=== PATIENT | female | born 1950 | race Caucasian/White ===

== ENCOUNTER 2017-06-10 21:42 | Emergency (ER) | payer BC ==
[2017-06-10 22:05] LABS: Bilirubin Negative (Negative); Blood, Urine Negative (Negative); Clarity CLEAR (Clear); Glucose, Urine (Dipstick) Negative (Negative); Leukocyte Negative (Negative); Nitrite Negative (Negative); Protein, Urine (Dipstick) Negative (Neg-Trace); Specific Gravity, Urine 1.012 (1.002-1.036); Urobilinogen 0.2 mg/dL (0.2-1.0); pH, Urine 7.5 (5.0-9.0)
[2017-06-10 22:11] LABS: #Basophils 0.1 thou/uL (0.0-0.2); #Eosinphils 0.2 thou/uL (0.0-0.7); #Lymphocytes 1.5 thou/uL (1.20-3.40); #Monocytes 1.1 thou/uL (0.11-0.59); #Neutrophils 8.9 thou/uL (1.40-6.50); %Basophils 0.6 % (0.0-1.0); %Eosinophils 1.7 % (0.0-10.0); %Lymphocytes 12.6 % (21.0-51.0); %Monocytes 9.3 % (0.0-10.0); %Neutrophils 75.9 % (42.0-75.0); Hemoglobin 13.7 g/dL (12.0-16.0); Mean Corpuscular HGB CONC 33.1 g/dL (32.0-36.0); Mean Corpuscular Hemoglobin 33.1 pg (27.0-31.0); Mean Platelet Volume 6.9 fL (7.4-10.4); Platelet Count 287 thou/uL (130-400); RBC Distribution Width 12.8 % (11.5-14.5); Red Blood Cell (RBC) Count 4.14 mill/uL (4.20-5.40); White Blood Cell (WBC) Count 11.7 thou/uL (4.8-10.8)
[2017-06-10 22:28] LABS: ALT (SGPT) 20 U/L (8-55); AST (SGOT) 22 U/L (5-34); Albumin 4.5 g/dL (3.4-4.8); Alkaline Phosphatase 83 U/L (40-150); Anion Gap 11 mmol/L (10-20); BUN (Urea Nitrogen) 12 mg/dL (9.8-20.1); Bilirubin, Total 0.4 mg/dL (0.2-1.2); Calc. Creatinine Clearance 0 mL/min (70-130); Calcium 9.8 mg/dL (7.8-10.44); Carbon Dioxide 31 mmol/L (23-31); Chloride 100 mmol/L (98-107); Estimated GFR-MDRD 80; Globulin 3.3 g/dL (2.4-3.5); Glucose 98 mg/dL (80-115); Protein, Total 7.8 g/dL (6.0-8.3); Sodium 138 mmol/L (136-145)
[2017-06-11] MEDS ORDERED: HYDROcodone/Acetaminophen 5/325 mg Tablet ONE (00:49)
--- NOTE | 2017-06-11 07:52 | RAD ---
TWO VIEWS CHEST: HISTORY: Chest pain. FINDINGS: PA and lateral views of the chest were obtained. The lungs are well aerated. No evidence of active intrathoracic disease is seen. No evidence of eff usions, pneumonia, or pneumothorax seen. IMPRESSION: Unremarkable 2 views chest. POS: [facility]
== END 2017-06-11 01:36 | disposition home or self-care (01) ==
LOC: ERS 21:42
DX: R10.9 Unspecified abdominal pain (principal)
CPT/HCPCS: 36415; 71046; 80053; 81003; 85025; 85379

== ENCOUNTER 2018-08-16 10:50 | Outpatient (CLI) | payer MEDICARE ==
--- NOTE | 2018-08-16 11:35 | CT ---
CONTRAST ENHANCED IMAGES PELVIS: HISTORY: Persistent rectal burning. FINDINGS: Contrast-enhanced images of the pelvis obtained after administration of IV and oral contrast. No significant evidence of pelvic osseous lesion seen. No evidence of free pelvic fluid seen. The visualized small bowel and colon is unremarkable. No diste nded loop of small bowel seen. No evidence of pelvic lymphadenopathy seen. IMPRESSION: Normal contrast-enhanced CT images of the pelvis. Transcribed Date/Time: 08/16/2018 12:40 PM
[2018-08-16] MEDS ORDERED: ISOVUE-370 76%-LOCM 1 ML ONE (16:42)
== END 2018-08-16 10:51 | disposition home or self-care (01) ==
LOC: BICCT 10:50
PROVIDERS: ATTEND Internal Medicine Gastroenterology
DX: K62.89 Other specified diseases of anus and rectum (principal)
CPT/HCPCS: 72193; 82565; Q9966

== ENCOUNTER 2020-02-25 08:48 | Outpatient (CLI) | payer MEDICARE ==
--- NOTE | 2020-02-25 09:25 | BD ---
EXAM: DEXA bone density examination HISTORY: History of osteoporosis COMPARISON: July 04, 2017 and July 15, 2013 FINDINGS: L1--bone mineral density 0.936 g/sq cm; T score -0.5. Z score 1.3 L2--bone mineral density 0.963 g/sq cm; T score -0.6; Z score 1.4 L3--bone mineral density 1.011 g/sq cm; T score -0.7; Z score 1.4 L4--bone mineral density 0.955 g/sq cm; T score -1.0, Z score 1.1 Total L1-L4--bone mineral density 0.967 g/sq cm; T score -0.7, Z score 1.2 Left femoral neck--bone mineral density0.660; T score -1.7, Z score 0.0 Total proximal left femur--bone mineral density 0.792; T score -1.2, Z score 0.2 This patient has a 10 year WHO fracture risk of a major osteoporotic fracture of 8.5% and of a hip fr acture of 1.3%. The bone mineral density of the left femoral neck region has slightly declined from the comparison examination dated July 04, 2017 performed at [facility]. A direct comparison cannot be made as the examination was performed on dissimilar scan types IMPRESSION: Based on the WHO criteria, the patient's bone mineral density is consideredOsteopenic. T he patient is at moderate risk for fracture.
== END 2020-02-25 08:49 | disposition home or self-care (01) ==
LOC: BICMAMMO 08:48
PROVIDERS: ATTEND Internal Medicine
DX: M81.0 Age-related osteoporosis without current pathological fracture (principal); M85.89 Other specified disorders of bone density and structure, multiple sites
CPT/HCPCS: 77080

== ENCOUNTER 2022-04-03 10:37 | Inpatient (IN) | payer MEDICARE ==
[2022-04-03] MEDS ORDERED: Fentanyl 250 MCG/5 ML VIAL ONE (12:08)
[2022-04-03] MEDS ORDERED: Neomycin-Polymyxin 1 ML AMP ONE (12:26)
[2022-04-03] MEDS ORDERED: Ropivacaine 0.5% HCl/PF (150 MG/30 ML VIAL) ONE (12:33)
[2022-04-03] MEDS ORDERED: Midazolam HCl 2 mg/2 ml Vial ONE (12:33)
[2022-04-03] MEDS ORDERED: Fentanyl 100 MCG/2 ML VIAL ONE ×2 (12:33→14:33)
[2022-04-03] MEDS ORDERED: CEFAZOLIN 2 GM VIAL ONE (12:42)
[2022-04-03] MEDS ORDERED: Sodium Chloride 0.9% 100 ML ONE (12:42)
[2022-04-03] MEDS ORDERED: Glycopyrrolate 0.2 MG/ML 5 ML SYRINGE ONE (12:59)
[2022-04-03] MEDS ORDERED: Rocuronium Bromide 10 MG/ML (10ML VIAL) ONE (12:59)
[2022-04-03] MEDS ORDERED: PROPOFOL 200 MG/20 ML VIAL ONE (12:59)
[2022-04-03] MEDS ORDERED: NEOSTIGMINE 3 MG/3 ML SYR 3 MG/3 ML SYRINGE ONE (12:59)
[2022-04-03] MEDS ORDERED: Ondansetron PF 4 MG/2 ML Vial ONE (12:59)
[2022-04-03] MEDS ORDERED: Ketorolac Tromethamine 30 MG/ML VIAL ONE (12:59)
[2022-04-03] MEDS ORDERED: Promethazine HCl 25 MG/ML VIAL IVPB PRN (13:20)
[2022-04-03] MEDS ORDERED: Meperidine HCl/PF 25 MG/ML VIAL SLOW IVP PRN (13:20)
[2022-04-03] MEDS ORDERED: Promethazine HCl 25 MG/ML VIAL IM PRN (13:20)
[2022-04-03] MEDS ORDERED: HYDROmorphone 2 MG/ML VIAL SLOW IVP PRN (13:20)
[2022-04-03] MEDS ORDERED: Bupivacaine HCl 0.5%/Epinephrine 1:200,000/PF 30 ml Vial ONE (13:21)
[2022-04-03] MEDS ORDERED: Morphine 10 MG/ML VIAL ONE (13:32)
[2022-04-03] MEDS ORDERED: TETANUS, DIPHTHERIA TOX,ADULT (TDVAX) 0.5 ML VIAL IM ONE (14:03)
[2022-04-03] MEDS ORDERED: Morphine 4 MG/ML VIAL SLOW IVP PRN ×2 (14:03→15:17)
[2022-04-03] MEDS ORDERED: Ondansetron PF 4 MG/2 ML Vial SLOW IVP PRN (14:03)
[2022-04-03] MEDS ORDERED: hydrALAZINE 20 MG/ML VIAL ONE (14:09)
[2022-04-03] MEDS ORDERED: Communication Order-Pharmacy FS SCH (14:15)
[2022-04-03] MEDS ORDERED: HYDROmorphone 0.5 MG/0.5 ML SYRINGE ONE (14:21)
[2022-04-03 17:30] VITALS: BMI 18.9
[2022-04-03] MEDS: Ketorolac Tromethamine 30 MG/ML VIAL IVP SCH ×2 (18:35→23:51)
[2022-04-03] MEDS: CEFAZOLIN 2 GM in Sodium Chloride 0.9% 100 ML IVPB SCH (21:15)
[2022-04-03] MEDS: Aspirin 81 mg Enteric Coated Tablet PO SCH (21:15)
[2022-04-04] MEDS: Ketorolac Tromethamine 30 MG/ML VIAL IVP SCH ×3 (06:05→17:50)
[2022-04-04] MEDS: CEFAZOLIN 2 GM in Sodium Chloride 0.9% 100 ML IVPB SCH (06:06)
[2022-04-04] MEDS: HYDROcodone/Acetaminophen 10/325 mg Tablet PO PRN (10:14)
[2022-04-04] MEDS: Aspirin 81 mg Enteric Coated Tablet PO SCH ×2 (10:14→20:19)
[2022-04-05] MEDS: HYDROcodone/Acetaminophen 10/325 mg Tablet PO PRN ×2 (03:33→15:09)
[2022-04-05] MEDS: Aspirin 81 mg Enteric Coated Tablet PO SCH (09:53)
[2022-04-05 11:26] VITALS: BP 151/83; TEMP 99.1
== END 2022-04-05 16:12 | disposition home health service (06) | DRG 470 ==
LOC: SDC 10:37 → SURG A 15:28
PROVIDERS: ADMIT Orthopaedic Surgery; ATTEND Orthopaedic Surgery
PROC: 0SRR0JZ Replacement of Right Hip Joint, Femoral Surface with Synthetic Substitute, Open Approach (ICD-10-PCS; principal; 2022-04-03)
PROC: 0QP604Z Removal of Internal Fixation Device from Right Upper Femur, Open Approach (ICD-10-PCS; 2022-04-03)
DX: T84.89XA Other specified complication of internal orthopedic prosthetic devices, implants and grafts, initial encounter (principal); S72.001K Fracture of unspecified part of neck of right femur, subsequent encounter for closed fracture with nonunion; T84.84XA Pain due to internal orthopedic prosthetic devices, implants and grafts, initial encounter; Z79.82 Long term (current) use of aspirin
CPT/HCPCS: 80048; 85027; 93005; 93010; C1776; J0360; J1170; J1885; J2250; J2270; J2405; J2704; J2795; J3010; J3490

== ENCOUNTER 2025-03-26 13:37 | Outpatient (CLI) | payer MEDICARE | END 2025-03-26 13:38 | disposition home or self-care (01) | LOC: BICMAMMO 13:37 | PROVIDERS: ATTEND Internal Medicine | DX: Z12.31 Encounter for screening mammogram for malignant neoplasm of breast (principal) | CPT/HCPCS: 77063; 77067 ==